=== PATIENT | female | born 1975 | race Two or more races ===

== ENCOUNTER 2017-02-27 13:09 | Emergency (ER) | payer OTHER, BC ==
--- NOTE | 2017-02-27 14:40 | ER Document Report ---
ED General - General Mode of Arrival: Ambulatory Information source: Patient TRAVEL OUTSIDE OF THE [place] IN LAST 30 DAYS: No - General Chief Complaint: Back Pain Stated Complaint: BACK PAIN/NUMBNESS Time Seen by Provider: 02/27/17 14:23 Notes: Patient is a 41 year old female presenting to the emergency department for back and knee pain after a fall. Patient states she was walking at work and she slipped on water and fell. Patient states she hurt her back and knees. This fall occurred on 02/16/2017. Patient was seen at urgent at urgent care for her injuries on 02/16/17 and had x-rays completed which were normal. Patient states that her hands are falling asleep and she has a decreased sensation from the medial aspect of her foot to the medial aspect of her thigh bilaterally. Patient has been taking muscle relaxers that she was prescribed by urgent care. Patient denies any weakness. (VAMSI DC) - Related Data Allergies/Adverse Reactions: iodine Allergy (Verified 02/27/17 13:13) Past Medical History - General Information source: Patient - Social History Smoking Status: Never Smoker Cigarette use (# per day): No Chew tobacco use (# tins/day): No Smoking Education Provided: No Frequency of alcohol use: None Drug Abuse: None Family History: None Patient has suicidal ideation: No Patient has homicidal ideation: No Pulmonary Medical History: Reports: Hx Asthma Past Surgical History: Reports: Hx Orthopedic Surgery - left wrist, Hx Tonsillectomy - Immunizations Hx Diphtheria, Pertussis, Tetanus Vaccination: Yes - 2014 Review of Systems - Review of Systems Constitutional: denies: Fever, Weakness Musculoskeletal: See HPI, Back pain Skin: No symptoms reported Neurological/Psychological: Sensory change, Numbness, Tingling Physical Exam - Vital signs Vitals: Temp Pulse Resp BP Pulse Ox 98.8 F 88 18 126/81 H 99 02/27/17 13:14 02/27/17 13:14 02/27/17 13:14 02/27/17 13:14 02/27/17 13:14 - Notes Notes: GENERAL: Alert, interacts well. No acute distress. HEAD: Normocephalic, atraumatic. EYES: Pupils equal, round, and reactive to light. Extraocular movements intact. ENT: Oral mucosa moist, tongue midline. NECK: Full range of motion. Supple. Trachea midline. LUNGS: Clear to auscultation bilaterally, no wheezes, rales, or rhonchi. No respiratory distress. HEART: Regular rate and rhythm. No murmurs, gallops, or rubs. ABDOMEN: Soft, non-tender. Non-distended. Bowel sounds present in all 4 quadrants. BACK: Tenderness to palpate over the lumbar sacral junction. Midline bony tenderness to palpation over the lumbar spine with no step-offs or deformities. EXTREMITIES: Moves all 4 extremities spontaneously. No edema, radial and dorsalis pedis pulses 2/4 bilaterally. No cyanosis. NEUROLOGICAL: Alert and oriented x3. Normal speech. Patellar DTRs 2+ bilaterally. Winces and withdrawals from the sharp end of the broken Q-tip but then states it is dull when being poked from the medial aspect of the foot to the medial aspect of the thigh bilaterally. PSYCH: Normal affect, normal mood. SKIN: Warm, dry, normal turgor. No rashes or lesions noted. (VAMSI DC) Course - Re-evaluation Re-evalutation: 02/27/17 15:26 X-ray shows no significant vertebral compression or disc space reduction, minimal lumbar levoscoliosis convex to the left. Physical examination has no findings to support cauda equina syndrome. Patient's neurologic exam is somewhat confusing as she states she cannot tell a difference between sharp and dull however when I use the end of a broken Q-tip to test sharp versus dull she winces and pulls away and then tells me that it felt dull and that she could barely feel it. Am concerned that the patient is not being fully truthful with her examination. Patient's paresthesias do not follow a pattern specific to any one or 2 lumbar nerve dermatomes. No difficulty walking. At present there is no indication for MRI, I encouraged the patient follow-up with primary care physician and consider referral to physical therapy for continuing back pain. Encourage continuing the use of muscle relaxers as well as gentle stretching and heating pads and anti- inflammatories in the form of ibuprofen. Discharged home. 02/27/17 15:38 At the end of the patient's visit she asks me "what about peeing on myself? I stated that the patient had never mentioned peeing on herself before and at this point she said "oh yes I peed myself on and on Wednesday, both times it ran down my leg, one time it was while coughing and the other time it just happened," she states she knew she needed to urinate and then she did. States she has never had this trouble before. Denies any fecal incontinence, denies any difficulty urinating, denies any dysuria. Urinary incontinence is not typical for cauda equina syndrome, discussed with the patient that urinary retention is far more frequent, also discussed with the patient that if she were having cauda equina syndrome she would not know that she needed to urinate. Asked if she wanted to provide a urine sample and we will check her for urinary tract infection, patient declined. Patient recommended to follow- up with urology and gynecology as an outpatient, return for urinary retention, fecal incontinence or any new or concerning symptoms. (KATT MAY) - Vital Signs Vital signs: Temp Pulse Resp BP Pulse Ox 98 F 72 16 128/76 H 99 02/27/17 15:58 02/27/17 15:58 02/27/17 15:58 02/27/17 15:58 02/27/17 15:58 Discharge - Discharge Clinical Impression: Low back pain Qualifiers: Chronicity: acute Back pain laterality: midline Sciatica presence: without sciatica Qualified Code(s): M54.5 - Low back pain Condition: Stable Disposition: HOME, SELF-CARE Additional Instructions: Please use ibuprofen (Motrin or Advil) 600-800 mg every 8 hours as needed for pain. You may also use acetaminophen (Tylenol) 1000 mg every 4-6 hours as needed for pain. Please be aware that many medications contain acetaminophen, do not exceed a total of 1000 mg of acetaminophen every 6 hours. Low Back Pain Three out of every four people will have an episode of disabling back pain during their lifetime. Most commonly the pain is due to straining of the muscles and ligaments in the low back. Usual treatment includes: (1) Rest on a firm surface. Avoid lying on your stomach. (2) Ice pack the painful area. After a few days, gentle heat may be used intermittently to relax the area, or ice packs can be continued. (3) Medication may be needed -- muscle relaxers and antiinflammatory medicines are commonly used. (4) As the back improves, exercises are prescribed to strengthen the back and abdominal muscles. Your doctor will advise you on the proper care for your back at each stage in your recovery. You may be better in a few days -- or healing may take several weeks. If new symptoms of a "herniated disc" (radiation of pain, numbness, or tingling down the back of the leg or weakness in the leg) occur, you should be re-examined. Further testing may be necessary. Today you did not have signs of a herniated disc on examination. Forms: Return to Work Referrals: YVES SAMUEL MD [ACTIVE STAFF] - Follow up as needed Scribe Attestation: 02/27/17 20:38 I personally performed the services described in the documentation, reviewed and edited the documentation which was dictated to the scribe in my presence, and it accurately records my words and actions. (KATT MAY) Scribe Documentation - Scribe Written by Pelon:: Vamsi Dc, Pelon 02/27/2017 20:00 acting as scribe for :: Joan
--- NOTE | 2017-02-27 15:19 | RADIOLOGY REPORT (SQ) ---
EXAM DESCRIPTION: L SPINE WHOLE COMPLETED DATE/TIME: 02/27/2017 3:02 pm REASON FOR STUDY: fall, low back pain, paresthesias COMPARISON: None. NUMBER OF VIEWS: Five views including obliques. TECHNIQUE: AP, lateral, oblique, and sacral radiographic images acquired of the lumbar spine. LIMITATIONS: None. FINDINGS: MINERALIZATION: Normal. SEGMENTATION: Normal. No transitional anatomy. ALIGNMENT: There is a minimal lumbar scoliosis convex to the left. VERTEBRAE: Maintained height. No fracture or worrisome bone lesion. DISCS: Preserved height. No significant osteophytes or end plate irregularity. POSTERIOR ELEMENTS: Pedicles and facets are intact. No pars defect or posterior arch defects. HARDWARE: None in the spine. PARASPINAL SOFT TISSUES: Normal. PELVIS: Intact as visualized. No fractures or worrisome bone lesions. SI joints intact. OTHER: No other significant finding. IMPRESSION: No significant vertebral compression or disc space reduction. There is a minimal lumbar scoliosis convex to the left. Other findings as noted above TECHNICAL DOCUMENTATION: JOB ID: [id number] [employer]- All Rights Reserved
[2017-02-27 16:03] VITALS: BP 128/76
== END 2017-02-27 15:55 | disposition home or self-care (01) ==
LOC: ER 13:09
DX: M54.5 Low back pain (principal); R20.0 Anesthesia of skin; M25.569 Pain in unspecified knee; W19.XXXA Unspecified fall, initial encounter; W01.0XXA Fall on same level from slipping, tripping and stumbling without subsequent striking against object, initial encounter
CPT/HCPCS: 72110; 99283